=== PATIENT | male | born 1950 | race Two or more races ===

== ENCOUNTER 2021-11-19 11:14 | Inpatient (IN) | payer MEDICARE, OTHER ==
[~2021-11-19] VITALS: Ht 165.1 cm; Wt 95.9 kg
[~2021-11-19 11:14] MED LIST: ATOR40TA70 PO
[2021-11-19] MEDS ORDERED: CEFTRIAXONE 1 G PREMIX 50 ML IV ONE (11:45)
[2021-11-19] MEDS ORDERED: SODIUM CHLORIDE 0.9% 1000ML BAG (SEPSIS BOLUS) IV ONE (11:45)
[2021-11-19 12:10] LABS: INR 1.1; PROTHROMBIN TIME 12.2 sec (9.6-11.0)
[2021-11-19 12:12] LABS: CHLORIDE 102 mEq/L (98-107)
[2021-11-19 12:17] LABS: HEMATOCRIT. 42.4 % (42.0-52.0); HEMOGLOBIN. 14.6 g/dL (14.0-18.0); MEAN CORPUSCULAR HEMOGLOBIN 30.8 pg (28.0-32.0); MEAN CORPUSCULAR VOLUME 89.8 fL (80.0-94.0); MEAN PLATELET VOLUME 8.1 fl (7.4-10.4); PLATELET 182 x1000/uL (130-400); RED BLOOD CELL COUNT 4.72 mill/uL (4.7-6.1); RED CELL DISTRIBUTION WIDTH 14.7 % (11.6-14.6)
[2021-11-19 12:20] LABS: ETHANOL BLOOD < 10 mg/dL
[2021-11-19 12:48] LABS: PLATELET ESTIMATE NORMAL
[2021-11-19 12:57] LABS: CLARITY URINE CLEAR (CLEAR); COLOR URINE YELLOW (YELLOW); KETONES URINE NEGATIVE (NEGATIVE); LEUKOCYTE ESTERASE URINE 2+ (NEGATIVE); NITRITE URINE NEGATIVE (NEGATIVE); OCCULT BLOOD URINE TRACE (NEGATIVE); PROTEIN URINE 1+ (NEGATIVE); SPECIFIC GRAVITY URINE 1.017 (1.005-1.030)
[2021-11-19 15:30] VITALS: BP 112/68
[2021-11-19 16:00] VITALS: BP 112/68
[2021-11-19] MEDS ORDERED: MAGNESIUM/ALUMINUM HYDROXIDE/SIMETHICONE 30ML UDC PO PRN (17:45)
[2021-11-19] MEDS ORDERED: KETOROLAC 30MG/ML VIAL IV PRN (17:45)
[2021-11-19] MEDS ORDERED: KETOROLAC 15MG/ML VIAL IV PRN (17:45)
[2021-11-19] MEDS ORDERED: GUAIFENESIN 200MG/10ML SUGAR FREE UDC PO PRN (17:45)
[2021-11-19] MEDS ORDERED: ONDANSETRON HCL 4MG/2ML INJ IV PRN (17:45)
[2021-11-19] MEDS ORDERED: NITROGLYCERIN 0.4MG TABLET SL SL PRN (17:45)
[2021-11-19] MEDS ORDERED: IPRATROPIUM/ALBUTEROL 0.5-3(2.5)MG/3ML NEB NEB PRN (17:45)
[2021-11-19] MEDS ORDERED: DEXTROSE 50% WATER 50ML SYRINGE IV PRN (17:45)
[2021-11-19] MEDS ORDERED: CLONIDINE 0.1MG TABLET PO PRN (17:45)
[2021-11-19] MEDS ORDERED: DOCUSATE SODIUM 100MG CAPSULE PO PRN (17:45)
[2021-11-19] MEDS ORDERED: ACETAMINOPHEN 325MG TABLET PO PRN ×2 (17:45)
[2021-11-19] MEDS ORDERED: ENOXAPARIN 40MG/0.4ML SYR SUBCUT SCH (18:00)
[2021-11-19 19:47] LABS: T4 FREE 0.89 ng/dL (0.76-1.46)
[2021-11-19 20:00] VITALS: BP 102/63
[2021-11-19] MEDS ORDERED: LEVOFLOXACIN 500MG PREMIX 100 ML IV SCH (20:00)
[2021-11-19] MEDS: FAMOTIDINE 20MG TABLET PO SCH (20:17)
[2021-11-19] MEDS: SODIUM CHLORIDE 0.9% 1,000 ML IV SCH (20:17)
[2021-11-19] MEDS: BLOOD SUGAR DIAGNOSTIC STRIP TEST SCH (20:18)
[2021-11-19] MEDS: ENOXAPARIN 30MG/0.3ML SYR SUBCUT SCH (20:18)
[2021-11-19] MEDS: ASCORBIC ACID 500 MG TABLET PO SCH (20:18)
[2021-11-19] MEDS ORDERED: ZOLPIDEM TARTRATE 5MG TABLET PO PRN (20:30)
[2021-11-19] MEDS: INSULIN LISPRO 100 UNITS/ML SUBCUT SCH (20:33)
[2021-11-20] VITALS: BP 100/62
[2021-11-20 04:00] VITALS: BP_SYST 114; BP_SYST 120; BP_DIAS 76; BP_DIAS 77
[2021-11-20 04:20] LABS: CREATINE KINASE MB FRACTION 2.5 ng/mL (0.5-3.6)
[2021-11-20] MEDS: BLOOD SUGAR DIAGNOSTIC STRIP TEST SCH ×2 (05:59→12:04)
[2021-11-20] MEDS: INSULIN LISPRO 100 UNITS/ML SUBCUT SCH ×2 (07:10→12:09)
[2021-11-20 08:00] VITALS: BP 134/88
[2021-11-20] MEDS: SODIUM CHLORIDE 0.9% 1,000 ML IV SCH (08:41)
[2021-11-20] MEDS: ENOXAPARIN 30MG/0.3ML SYR SUBCUT SCH (08:42)
[2021-11-20] MEDS: ASCORBIC ACID 500 MG TABLET PO SCH (08:43)
[2021-11-20] MEDS ORDERED: ASPIRIN 325MG EC TABLET PO SCH (09:00)
[2021-11-20 10:20] LABS: BASOPHILS % 0.1 % (0.0-2.0); EOSINOPHILS % 0.4 % (0.0-5.0); HEMOGLOBIN. 14.8 g/dL (14.0-18.0); LYMPHOCYTES % 14.2 % (20.0-50.0); MEAN CORPUSCULAR HEMOGLOBIN 31.6 pg (28.0-32.0); MEAN CORPUSCULAR VOLUME 89.7 fL (80.0-94.0); MEAN PLATELET VOLUME 8.3 fl (7.4-10.4); MONOCYTES % 8.4 % (2.0-8.0); NEUTROPHILS % 76.9 % (40.0-76.0); PLATELET 160 x1000/uL (130-400); RED BLOOD CELL COUNT 4.68 mill/uL (4.7-6.1); RED CELL DISTRIBUTION WIDTH 14.6 % (11.6-14.6)
[2021-11-20 10:48] LABS: CHLORIDE 103 mEq/L (98-107)
[2021-11-20 10:58] LABS: CREATINE KINASE 217 IU/L (39-308); CREATINE KINASE MB FRACTION 2.8 ng/mL (0.5-3.6); PHOSPHORUS 1.7 mg/dL (2.5-4.9)
[2021-11-20 12:00] VITALS: BP_SYST 104; BP_SYST 140; BP_DIAS 67; BP_DIAS 71
[2021-11-20] MEDS ORDERED: CEFTRIAXONE 1,000 MG in DEXTROSE 5% WATER 50 ML IV SCH (12:00)
[2021-11-20] MEDS: FAMOTIDINE 20MG TABLET PO SCH (12:09)
[2021-11-21] MEDS ORDERED: LEVOFLOXACIN 500MG TABLET PO SCH (11:00)
[2021-11-21] MEDS ORDERED: N325 SL (16:24)
[2021-11-21] MEDS ORDERED: LEVO-65 MT (16:24)
[2021-11-21] MEDS ORDERED: ASPI-1497 MT (16:24)
[2021-11-24 04:13] LABS: VITAMIN B12 SERUM 340 pg/mL (211-911)
== END 2021-11-20 16:25 | disposition left against medical advice (07) | DRG 871 ==
LOC: ER 11:14 → 7EST 14:59 → EDBEDREQSVC 15:10 → EDBEDREQ 15:10 → ENRESERV 15:15
PROVIDERS: ADMIT Internal Medicine; ATTEND Internal Medicine
DX: A41.9 Sepsis, unspecified organism (principal); G92.8 Other toxic encephalopathy; N39.0 Urinary tract infection, site not specified; E87.1 Hypo-osmolality and hyponatremia; E44.1 Mild protein-calorie malnutrition; Z20.822 Contact with and (suspected) exposure to COVID-19; E83.51 Hypocalcemia; E11.9 Type 2 diabetes mellitus without complications; F03.90 Unspecified dementia, unspecified severity, without behavioral disturbance, psychotic disturbance, mood disturbance, and anxiety; Z53.29 Procedure and treatment not carried out because of patient's decision for other reasons; Z68.35 Body mass index [BMI] 35.0-35.9, adult
CPT/HCPCS: 36415; 71045; 80053; 80061; 80320; 81003; 82550; 82553; 82607; 82746; 82962; 83036; 83540; 83550; 83605; 83735; 84100; 84145; 84439; 84443; 84484; 85025; 87426; 93005; 93306; 93970; 97162; 99285; C9803; J0696; J1650; J1956; J7030; J7060; G0480

== ENCOUNTER 2021-11-21 13:16 | Emergency (ER) | payer MEDICARE, OTHER ==
[~2021-11-21] VITALS: Ht 165.1 cm; Wt 75.0 kg
[2021-11-21 13:18] VITALS: BP 110/59
[2021-11-21] MEDS ORDERED: ASPI-1497 MT (16:24)
[2021-11-21] MEDS ORDERED: N325 SL (16:24)
[2021-11-21] MEDS ORDERED: LEVO500T90 MT (16:24)
== END 2021-11-21 17:43 | disposition home or self-care (01) ==
LOC: ER 13:16
DX: Z76.0 Encounter for issue of repeat prescription (principal); E11.9 Type 2 diabetes mellitus without complications; Z79.82 Long term (current) use of aspirin; Z87.440 Personal history of urinary (tract) infections
CPT/HCPCS: 99283

== ENCOUNTER 2021-11-26 08:36 | Emergency (ER) | payer MEDICARE, OTHER ==
[~2021-11-26] VITALS: Ht 167.6 cm; Wt 89.0 kg
[~2021-11-26 08:36] MED LIST changes: +ASPI-1497 MT; +LEVO500T90 MT; +N325 SL
[2021-11-26 08:42] VITALS: BP 113/64
== END 2021-11-26 09:03 | disposition left against medical advice (07) ==
LOC: ER 08:36
DX: Z53.21 Procedure and treatment not carried out due to patient leaving prior to being seen by health care provider (principal); E11.9 Type 2 diabetes mellitus without complications; Z87.440 Personal history of urinary (tract) infections

== ENCOUNTER 2021-11-27 13:40 | Emergency (ER) | payer MEDICARE, OTHER ==
[~2021-11-27] VITALS: Ht 165.1 cm; Wt 90.0 kg
[~2021-11-27 13:40] MED LIST changes: +LEVO-65 MT; -LEVO500T90 MT
[2021-11-27 13:43] VITALS: BP 136/76
== END 2021-11-27 15:42 | disposition left against medical advice (07) ==
LOC: ER 13:40
DX: Z53.21 Procedure and treatment not carried out due to patient leaving prior to being seen by health care provider (principal)

== ENCOUNTER 2021-12-27 14:35 | Inpatient (IN) | payer MEDICARE, OTHER ==
[~2021-12-27] VITALS: Ht 165.1 cm; Wt 96.2 kg
[2021-12-27] MEDS ORDERED: ACETAMINOPHEN 325MG TABLET PO STA (15:24)
[2021-12-27] MEDS ORDERED: SODIUM CHLORIDE 0.9% 1000ML BAG (SEPSIS BOLUS) IV ONE (15:30)
[2021-12-27] MEDS ORDERED: CEFTRIAXONE 2 GM IV ONE (15:30)
[2021-12-27] MEDS ORDERED: CEFTRIAXONE 2 G in DEXTROSE 5% WATER 50 ML IV NR (16:15)
[2021-12-27 17:30] LABS: HEMOGLOBIN. 15.7 g/dL (14.0-18.0); MEAN CORPUSCULAR HEMOGLOBIN 30.7 pg (28.0-32.0); MEAN CORPUSCULAR VOLUME 89.8 fL (80.0-94.0); MEAN PLATELET VOLUME 8.2 fl (7.4-10.4); PLATELET 223 x1000/uL (130-400); RED BLOOD CELL COUNT 5.13 mill/uL (4.7-6.1); RED CELL DISTRIBUTION WIDTH 14.4 % (11.6-14.6)
[2021-12-27 17:39] LABS: CHLORIDE 95 mEq/L (98-107)
[2021-12-27 17:52] LABS: INR 1.1; PROTHROMBIN TIME 11.9 sec (9.6-11.0)
[2021-12-27] MEDS ORDERED: ACETAMINOPHEN 325MG TABLET ONE (17:54)
[2021-12-27 18:17] LABS: CLARITY URINE CLOUDY (CLEAR); COLOR URINE YELLOW (YELLOW); KETONES URINE NEGATIVE (NEGATIVE); LEUKOCYTE ESTERASE URINE 1+ (NEGATIVE); NITRITE URINE NEGATIVE (NEGATIVE); OCCULT BLOOD URINE NEGATIVE (NEGATIVE); PROTEIN URINE 1+ (NEGATIVE); SPECIFIC GRAVITY URINE 1.019 (1.005-1.030); UROBILINOGEN URINE 0.2 E.U./dL (0.2-1.0)
[2021-12-27] MEDS ORDERED: SODIUM CHLORIDE 0.9% 1,000 ML IV ONE (18:45)
[2021-12-27 19:51] LABS: PLATELET ESTIMATE NORMAL
[2021-12-27 21:30] VITALS: BP 92/65
[2021-12-27] MEDS ORDERED: HYDROCODONE/ACETAMINOPHEN 5/325MG TABLET PO PRN (23:00)
[2021-12-27] MEDS: SODIUM CHLORIDE 0.9% 1,000 ML IV SCH (23:15)
[2021-12-28 06:49] LABS: HEMATOCRIT 42.8 % (42.0-52.0); HEMOGLOBIN 14.6 g/dL (14.0-18.0); MEAN CORPUSCULAR HEMOGLOBIN 30.7 pg (28.0-32.0); MEAN CORPUSCULAR VOLUME 89.9 fL (80.0-94.0); PLATELET 201 x1000/uL (130-400); RED BLOOD CELL COUNT 4.76 mill/uL (4.7-6.1); RED CELL DISTRIBUTION WIDTH 14.7 % (11.6-14.6)
[2021-12-28 08:00] VITALS: BP_SYST 93; BP_SYST 97; BP_DIAS 64
[2021-12-28] MEDS: SODIUM CHLORIDE 0.9% 1,000 ML IV SCH ×2 (09:10→19:03)
[2021-12-28 12:00] VITALS: BP 93/62
[2021-12-28 12:03] LABS: CHLORIDE 102 mEq/L (98-107)
[2021-12-28] MEDS: TAMSULOSIN HCL 0.4MG SR CAPSULE PO SCH (14:37)
[2021-12-28] MEDS: THIAMINE HCL 100MG TABLET PO SCH (14:37)
[2021-12-28 16:00] VITALS: BP 95/51
[2021-12-28] MEDS: ENOXAPARIN 30MG/0.3ML SYR SUBCUT SCH (16:19)
[2021-12-28] MEDS ORDERED: CEFTRIAXONE 1,000 MG in DEXTROSE 5% WATER 50 ML IV SCH (17:00)
[2021-12-28 20:52] VITALS: BP 92/51
[2021-12-29 00:16] VITALS: BP 104/60
[2021-12-29 04:00] VITALS: BP 104/54
[2021-12-29] MEDS: ENOXAPARIN 30MG/0.3ML SYR SUBCUT SCH (05:13)
[2021-12-29] MEDS: SODIUM CHLORIDE 0.9% 1,000 ML IV SCH ×2 (05:13→15:15)
[2021-12-29] MEDS ORDERED: PANTOPRAZOLE 40MG DR TABLET PO SCH (07:40)
[2021-12-29 07:51] LABS: BASOPHILS % 0.3 % (0.0-2.0); EOSINOPHILS % 1.7 % (0.0-5.0); HEMATOCRIT. 43.7 % (42.0-52.0); HEMOGLOBIN. 14.9 g/dL (14.0-18.0); LYMPHOCYTES % 25.3 % (20.0-50.0); MEAN CORPUSCULAR HEMOGLOBIN 30.9 pg (28.0-32.0); MEAN CORPUSCULAR VOLUME 90.5 fL (80.0-94.0); MEAN PLATELET VOLUME 8.6 fl (7.4-10.4); MONOCYTES % 14.7 % (2.0-8.0); PLATELET 207 x1000/uL (130-400); RED BLOOD CELL COUNT 4.83 mill/uL (4.7-6.1); RED CELL DISTRIBUTION WIDTH 14.8 % (11.6-14.6)
[2021-12-29 08:00] VITALS: BP 116/76
[2021-12-29] MEDS: TAMSULOSIN HCL 0.4MG SR CAPSULE PO SCH (08:19)
[2021-12-29] MEDS: THIAMINE HCL 100MG TABLET PO SCH (08:19)
[2021-12-29 08:56] LABS: CHLORIDE 104 mEq/L (98-107)
[2021-12-29 12:00] VITALS: BP 105/56
[2021-12-29 15:31] VITALS: BP 110/66
[2021-12-29 16:00] VITALS: BP 110/66
[2021-12-29] MEDS ORDERED: TAMS-11 MT (16:12)
[2021-12-29] MEDS ORDERED: NITR-87 MT (16:12)
[2021-12-29] MEDS ORDERED: THIA100T88 MT (16:12)
== END 2021-12-29 16:20 | disposition home or self-care (01) | DRG 871 ==
LOC: ER 14:50 → ENRESERV 20:27 → 7WST 21:40
PROVIDERS: ADMIT Internal Medicine; ATTEND Internal Medicine
DX: A41.9 Sepsis, unspecified organism (principal); G93.41 Metabolic encephalopathy; N39.0 Urinary tract infection, site not specified; E87.20 Acidosis, unspecified; F10.20 Alcohol dependence, uncomplicated; I10 Essential (primary) hypertension; E78.5 Hyperlipidemia, unspecified; Z20.822 Contact with and (suspected) exposure to COVID-19
CPT/HCPCS: 36415; 71045; 80048; 80053; 81003; 83605; 84145; 85025; 85027; 87426; 87804; 93005; 99291; C1893; C9803; J0696; J1650; J7030; J7060

== ENCOUNTER 2022-04-08 12:44 | Emergency (ER) | payer OTHER, MEDICARE ==
[~2022-04-08] VITALS: Ht 165.1 cm; Wt 84.0 kg
[~2022-04-08 12:44] MED LIST changes: +NITR-87 MT; +TAMS-11 MT; +THIA100T88 MT
[2022-04-08] MEDS ORDERED: LEVO750T68 MT (16:55)
[2022-04-08] MEDS ORDERED: LEVOFLOXACIN 250MG TABLET PO ONE (17:15)
[2022-04-08 17:30] VITALS: BP 133/77
== END 2022-04-08 17:32 | disposition home or self-care (01) ==
LOC: ER 12:44
DX: J18.9 Pneumonia, unspecified organism (principal); Z79.82 Long term (current) use of aspirin; Z20.822 Contact with and (suspected) exposure to COVID-19; Z98.890 Other specified postprocedural states
CPT/HCPCS: 71045; 71046; 87426; 87804; 99284; C9803

== ENCOUNTER 2022-05-11 08:51 | Emergency (ER) | payer MEDICARE, OTHER ==
[~2022-05-11] VITALS: Ht 165.1 cm; Wt 91.0 kg
[~2022-05-11 08:51] MED LIST changes: +LEVO750T68 MT
[2022-05-11 11:56] LABS: CLARITY URINE CLOUDY (CLEAR); COLOR URINE DARK YELLOW (YELLOW); KETONES URINE 1+ (NEGATIVE); LEUKOCYTE ESTERASE URINE 2+ (NEGATIVE); NITRITE URINE NEGATIVE (NEGATIVE); OCCULT BLOOD URINE TRACE (NEGATIVE); PH URINE 5.5 (4.5-8.0); PROTEIN URINE 1+ (NEGATIVE); SPECIFIC GRAVITY URINE 1.028 (1.005-1.030)
[2022-05-11 12:12] LABS: HEMATOCRIT. 43.6 % (42.0-52.0); HEMOGLOBIN. 14.9 g/dL (14.0-18.0); MEAN CORPUSCULAR HEMOGLOBIN 30.7 pg (28.0-32.0); MEAN CORPUSCULAR VOLUME 89.5 fL (80.0-94.0); PLATELET 227 x1000/uL (130-400); RED BLOOD CELL COUNT 4.87 mill/uL (4.7-6.1); RED CELL DISTRIBUTION WIDTH 14.1 % (11.6-14.6)
[2022-05-11 12:23] LABS: CHLORIDE 103 mEq/L (98-107)
[2022-05-11] MEDS ORDERED: CEPH500C2 MT (13:00)
[2022-05-11 13:15] LABS: PLATELET ESTIMATE NORMAL
[2022-05-11] MEDS ORDERED: CEPHALEXIN 250MG CAPSULE PO ONE (13:15)
[2022-05-11 14:10] VITALS: BP 137/83
== END 2022-05-11 14:11 | disposition home or self-care (01) ==
LOC: ER 08:51
DX: N39.0 Urinary tract infection, site not specified (principal); Z79.899 Other long term (current) drug therapy
CPT/HCPCS: 36415; 80053; 81003; 83605; 85025; 99283

== ENCOUNTER 2022-06-04 09:01 | Emergency (ER) | payer OTHER ==
[~2022-06-04] VITALS: Ht 165.1 cm; Wt 97.0 kg
[~2022-06-04 09:01] MED LIST changes: +CEPH500C2 MT
[2022-06-04] MEDS ORDERED: AZIT250T12 MT (11:22)
[2022-06-04] MEDS ORDERED: CEFP200T13 MT (11:22)
[2022-06-04 11:45] VITALS: BP 122/68
== END 2022-06-04 11:46 | disposition home or self-care (01) ==
LOC: ER 09:01
DX: J18.9 Pneumonia, unspecified organism (principal); Z79.82 Long term (current) use of aspirin
CPT/HCPCS: 71045; 71250; 99284

== ENCOUNTER 2022-06-06 08:55 | Emergency (ER) | payer OTHER ==
[~2022-06-06] VITALS: Ht 162.6 cm; Wt 97.0 kg
[~2022-06-06 08:55] MED LIST changes: +AZIT250T12 MT; +CEFP200T13 MT
[2022-06-06 10:07] VITALS: BP 122/80
== END 2022-06-06 10:08 | disposition home or self-care (01) ==
LOC: ER 08:55
DX: Z20.822 Contact with and (suspected) exposure to COVID-19 (principal); Z79.82 Long term (current) use of aspirin
CPT/HCPCS: 87426; 99283; C9803

== ENCOUNTER 2023-06-01 21:28 | Inpatient (IN) | payer MEDICARE, OTHER ==
[~2023-06-01] VITALS: Ht 165.1 cm; Wt 107.1 kg
[2023-06-01] MEDS: SODIUM CHLORIDE 0.9% 1000ML BAG (SEPSIS BOLUS) IV ONE (23:03)
[2023-06-01 23:41] LABS: HEMATOCRIT. 45.4 % (42.0-52.0); HEMOGLOBIN. 15.2 g/dL (14.0-18.0); MEAN CORPUSCULAR HEMOGLOBIN 30.4 pg (28.0-32.0); MEAN CORPUSCULAR HGB CONC 33.5 g/dL (31.0-37.0); MEAN PLATELET VOLUME 9.4 fl (7.4-10.4); PLATELET 223 x1000/uL (130-400); RED BLOOD CELL COUNT 4.99 mill/uL (4.7-6.1); RED CELL DISTRIBUTION WIDTH 14.4 % (11.6-14.6); WHITE BLOOD COUNT 15.5 x1000/uL (4.5-11.0)
[2023-06-01 23:44] LABS: DIFFERENTIAL COMMENT 1
[2023-06-01 23:46] LABS: PROTHROMBIN TIME 11.5 sec (9.6-11.0)
[2023-06-01 23:48] LABS: ALANINE AMINOTRANSFERASE 29 IU/L (10-49); ALBUMIN 4.7 g/dL (3.2-4.8); ASPARTATE AMINOTRANSFERASE 32 IU/L (<34); BILIRUBIN TOTAL 0.9 mg/dL (0.1-1.0); CALCIUM 9.1 mg/dL (8.7-10.4); CARBON DIOXIDE 24 mEq/L (21-32); CHLORIDE 101 mEq/L (98-107); CREATININE 0.8 mg/dL (0.6-1.3); GLUCOSE 146 mg/dL (70-105); POTASSIUM 4.2 mEq/L (3.5-5.1); PROTEIN TOTAL 8.1 g/dL (6.0-8.3); SODIUM 134 mEq/L (136-145); UREA NITROGEN BLOOD 12 mg/dL (9-23)
[2023-06-02 00:10] LABS: ETHANOL BLOOD < 10 mg/dL (<10)
[2023-06-02 00:53] LABS: CLARITY URINE CLOUDY (CLEAR); COLOR URINE YELLOW (YELLOW); GLUCOSE URINE NEGATIVE (NEGATIVE); KETONES URINE TRACE (NEGATIVE); LEUKOCYTE ESTERASE URINE 2+ (NEGATIVE); NITRITE URINE NEGATIVE (NEGATIVE); OCCULT BLOOD URINE 1+ (NEGATIVE); PH URINE 6.5 (4.5-8.0); PROTEIN URINE 1+ (NEGATIVE); SPECIFIC GRAVITY URINE 1.022 (1.005-1.030)
[2023-06-02 01:03] LABS: *AMPHETAMINES SCREEN URINE NEGATIVE (NEGATIVE); *BARBITURATES SCREEN URINE NEGATIVE (NEGATIVE); *BENZODIAZEPINES SCREEN URINE NEGATIVE (NEGATIVE); *COCAINE SCREEN URINE NEGATIVE (NEGATIVE); CANNABINOID URINE SCREEN NEGATIVE (NEGATIVE); ECSTASY MDMA SCREEN URINE NEGATIVE (NEGATIVE); METHADONE URINE SCREEN Neg (NEGATIVE); OPIATES URINE SCREEN NEGATIVE (NEGATIVE); PHENCYCLIDINE URINE SCREEN NEGATIVE (NEGATIVE)
[2023-06-02 01:27] LABS: WBC URINE TNTC /hpf (0-2)
[2023-06-02 01:28] LABS: BACTERIA URINE 1+; SQUAMOUS EPITHELIAL CELL URINE 1+ /lpf (RARE/1+)
[2023-06-02 01:46] LABS: PLATELET ESTIMATE NORMAL
[2023-06-02] MEDS: PIPERACILLIN/TAZO 3.375G/50ML 50 ML IV NR (02:12)
[2023-06-02] MEDS: KETOROLAC 15MG/ML VIAL IV ONE (02:35)
[2023-06-02] MEDS ORDERED: ACETAMINOPHEN 325MG TABLET PO PRN (04:15)
[2023-06-02] MEDS ORDERED: GUAIFENESIN 200MG/10ML SUGAR FREE UDC PO PRN (04:15)
[2023-06-02] MEDS ORDERED: IPRATROPIUM/ALBUTEROL 0.5-3(2.5)MG/3ML NEB HHN PRN (04:15)
[2023-06-02] MEDS ORDERED: MAGNESIUM/ALUMINUM HYDROXIDE/SIMETHICONE 30ML UDC PO PRN (04:15)
[2023-06-02] MEDS ORDERED: DOCUSATE SODIUM 100MG CAPSULE PO PRN (04:15)
[2023-06-02] MEDS ORDERED: VANCOMYCIN 1.5GM/250ML 250 ML IV NR (04:30)
[2023-06-02 05:28] LABS: HEMATOCRIT. 44.8 % (42.0-52.0); HEMOGLOBIN. 15.2 g/dL (14.0-18.0); MEAN CORPUSCULAR HEMOGLOBIN 31.4 pg (28.0-32.0); MEAN CORPUSCULAR HGB CONC 33.9 g/dL (31.0-37.0); MEAN CORPUSCULAR VOLUME 92.7 fL (80.0-94.0); PLATELET 218 x1000/uL (130-400); RED BLOOD CELL COUNT 4.83 mill/uL (4.7-6.1); RED CELL DISTRIBUTION WIDTH 14.4 % (11.6-14.6); WHITE BLOOD COUNT 18.9 x1000/uL (4.5-11.0)
[2023-06-02 05:42] LABS: ALANINE AMINOTRANSFERASE 25 IU/L (10-49); ASPARTATE AMINOTRANSFERASE 34 IU/L (<34); CALCIUM 7.8 mg/dL (8.7-10.4); CARBON DIOXIDE 24 mEq/L (21-32); CHLORIDE 104 mEq/L (98-107); CHOLESTEROL 119 mg/dL (<200); CREATININE 0.8 mg/dL (0.6-1.3); GLUCOSE 132 mg/dL (70-105); HDL CHOLESTEROL 48 mg/dL (>55); LDL CHOLESTEROL 58 mg/dL (5-100); PHOSPHORUS 2.2 mg/dL (2.5-4.9); POTASSIUM 4.9 mEq/L (3.5-5.1); PROTEIN TOTAL 6.9 g/dL (6.0-8.3); SODIUM 136 mEq/L (136-145); T4 FREE 0.82 ng/dL (0.89-1.76); THYROID STIMULATING HORMONE 1.04 uIU/mL (0.55-4.78); TRIGLYCERIDE 70 mg/dL (0-150); UREA NITROGEN BLOOD 12 mg/dL (9-23)
[2023-06-02] MEDS ORDERED: PIPERACILLIN/TAZO 3.375G/50ML 50 ML IV SCH ×2 (06:00)
[2023-06-02 06:06] LABS: DIFFERENTIAL COMMENT 1
[2023-06-02 10:30] VITALS: BP 111/71; PULSE 86; RESP 18; TEMP 100.8
[2023-06-02 12:00] VITALS: BP 111/71; PULSE 86; RESP 20; TEMP 100.8
[2023-06-02] MEDS: PANTOPRAZOLE SODIUM 40 MG/VIAL IV SCH (12:03)
[2023-06-02] MEDS: PIPERACILLIN/TAZO 3.375G/50ML 50 ML IV SCH (12:03)
[2023-06-02] MEDS: TAMSULOSIN HCL 0.4MG SR CAPSULE PO SCH (12:04)
[2023-06-02] MEDS: ASPIRIN 81MG EC TABLET PO SCH (12:04)
[2023-06-02] MEDS: SODIUM CHLORIDE 0.9% 1,000 ML IV SCH (12:05)
[2023-06-02] MEDS: ACETAMINOPHEN 325MG TABLET PO PRN (12:54)
[2023-06-02 15:35] LABS: PLATELET ESTIMATE NORMAL
[2023-06-02 16:00] VITALS: BP 97/56; PULSE 99; RESP 18; TEMP 99.9
[2023-06-02] MEDS: ONDANSETRON HCL 4MG/2ML INJ IV PRN (17:37)
[2023-06-02] MEDS: MAGNESIUM 1 G PREMIX 100 ML IV NR (17:37)
[2023-06-02] MEDS: VANCOMYCIN 1.5GM/250ML 250 ML IV NR (18:24)
[2023-06-02 20:00] VITALS: BP 159/116; PULSE 102; RESP 19; TEMP 99.1
[2023-06-02] MEDS: ATORVASTATIN CALCIUM 40MG TABLET PO SCH (21:25)
[2023-06-02] MEDS: ENOXAPARIN 30MG/0.3ML SYR SUBCUT SCH (21:26)
[2023-06-02] MEDS: CLONIDINE 0.1MG TABLET PO PRN (21:56)
[2023-06-03] VITALS: BP 98/54; PULSE 56; RESP 20; TEMP 99.3
[2023-06-03 04:00] VITALS: PULSE 78; RESP 18; TEMP 98.9
[2023-06-03 05:32] LABS: HEMATOCRIT 40.2 % (42.0-52.0); HEMOGLOBIN 13.7 g/dL (14.0-18.0); MEAN CORPUSCULAR HEMOGLOBIN 30.8 pg (28.0-32.0); MEAN CORPUSCULAR HGB CONC 34.2 g/dL (31.0-37.0); MEAN CORPUSCULAR VOLUME 90.2 fL (80.0-94.0); PLATELET 173 x1000/uL (130-400); RED BLOOD CELL COUNT 4.45 mill/uL (4.7-6.1); RED CELL DISTRIBUTION WIDTH 14.2 % (11.6-14.6); WHITE BLOOD COUNT 14.6 x1000/uL (4.5-11.0)
[2023-06-03 05:45] LABS: CHLORIDE 104 mEq/L (98-107); POTASSIUM 3.8 mEq/L (3.5-5.1); SODIUM 135 mEq/L (136-145)
[2023-06-03 05:46] LABS: CARBON DIOXIDE 27 mEq/L (21-32)
[2023-06-03 05:51] LABS: CREATININE 0.8 mg/dL (0.6-1.3); GLUCOSE 117 mg/dL (70-105); UREA NITROGEN BLOOD 15 mg/dL (9-23)
[2023-06-03 07:00] VITALS: BP 98/58; PULSE 78; RESP 18; TEMP 98.6
[2023-06-03 12:00] VITALS: BP 101/62; PULSE 92; RESP 16; TEMP 99.3
[2023-06-03 16:00] VITALS: BP 100/54; PULSE 89; RESP 19; TEMP 97.9
[2023-06-03] MEDS: VANCOMYCIN 1GM/200ML PMX (BAXTER) IV SCH (16:39)
[2023-06-03 20:00] VITALS: BP 106/61; PULSE 88; RESP 20; TEMP 97.5
[2023-06-04] VITALS (7 sets, daily range): BP systolic 120–148; BP diastolic 66–97; PULSE 76–104; RESP 18–22; TEMP 97.2–97.8
[2023-06-04 05:23] LABS: CALCIUM 8.6 mg/dL (8.7-10.4); CARBON DIOXIDE 25 mEq/L (21-32); CHLORIDE 105 mEq/L (98-107); POTASSIUM 3.9 mEq/L (3.5-5.1); SODIUM 137 mEq/L (136-145)
[2023-06-04 05:28] LABS: CREATININE 0.6 mg/dL (0.6-1.3); GLUCOSE 130 mg/dL (70-105)
[2023-06-04 05:29] LABS: UREA NITROGEN BLOOD 13 mg/dL (9-23)
[2023-06-04 05:31] LABS: PHOSPHORUS 2.4 mg/dL (2.5-4.9)
[2023-06-04 05:58] LABS: HEMATOCRIT 41.2 % (42.0-52.0); HEMOGLOBIN 14.2 g/dL (14.0-18.0); MEAN CORPUSCULAR HEMOGLOBIN 31.6 pg (28.0-32.0); MEAN CORPUSCULAR HGB CONC 34.5 g/dL (31.0-37.0); MEAN CORPUSCULAR VOLUME 91.4 fL (80.0-94.0); PLATELET 222 x1000/uL (130-400); RED BLOOD CELL COUNT 4.51 mill/uL (4.7-6.1); RED CELL DISTRIBUTION WIDTH 13.9 % (11.6-14.6)
[2023-06-04] MEDS: FAMOTIDINE 20MG/2ML VIAL IV SCH (08:27)
[2023-06-04] MEDS ORDERED: DEXTROSE 50% WATER 50ML SYRINGE IV PRN (08:30)
[2023-06-04] MEDS ORDERED: AMOX1TAB16 MT (10:41)
[2023-06-04] MEDS: BLOOD SUGAR DIAGNOSTIC STRIP TEST SCH (11:40)
[2023-06-04] MEDS: SODIUM PHOSPHATE 10 MMOL in DEXT 5% WATER 246.6667 ML IV NR (11:47)
[2023-06-04] MEDS: INSULIN LISPRO 100 UNITS/ML SUBCUT SCH (11:48)
[2023-06-05] VITALS: BP 135/77; PULSE 81; RESP 20; TEMP 97.8
[2023-06-05 04:00] VITALS: BP 140/88; PULSE 78; RESP 20; TEMP 97
[2023-06-05 08:00] VITALS: BP 136/83; PULSE 83; RESP 18; TEMP 98.2
[2023-06-05 10:42] VITALS: BP 136/83; PULSE 83; TEMP 98.2; O2SAT 98
== END 2023-06-05 11:20 | disposition home or self-care (01) | DRG 871 ==
LOC: ER 21:28 → 7EST 06-02 01:52 → EDBEDREQ 06-02 02:11 → EDBEDREQTM 06-02 02:11 → 7EST 06-03 16:19
PROVIDERS: ADMIT Internal Medicine; ATTEND Internal Medicine
DX: A41.9 Sepsis, unspecified organism (principal); G93.41 Metabolic encephalopathy; N39.0 Urinary tract infection, site not specified; R73.9 Hyperglycemia, unspecified; N40.0 Benign prostatic hyperplasia without lower urinary tract symptoms; E78.00 Pure hypercholesterolemia, unspecified; Z96.659 Presence of unspecified artificial knee joint; Z78.1 Physical restraint status
CPT/HCPCS: 36415; 71045; 74176; 80048; 80053; 80061; 80202; 80305; 80320; 81003; 82962; 83036; 83605; 83735; 84100; 84145; 84153; 84439; 84443; 85025; 85027; 93005; 97162; 97166; 97530; 99291; C1893; C9113; J1650; J1815; J1885; J2405; J2543; J3370; J3475; J3490; J7030; J7060; G0480